=== PATIENT | female | born 1995 | race Hispanic/Latino ===

== ENCOUNTER 2016-02-21 03:15 | Emergency (ER) | payer OTHER ==
[~2016-02-21] VITALS: Ht 167.6 cm; Wt 117.9 kg
--- NOTE | 2016-02-21 03:50 | ED GI/GU/ABDOMINAL COMPLAINT ---
History of Present Illness General Chief Complaint: Nausea, Vomiting, Diarrhea Stated Complaint: NAUSEA,VOMITNING,DIARRHEA Source: patient, family Exam Limitations: no limitations Vital Signs & Intake/Output Vital Signs & Intake/Output Vital Signs Date Time Temp Pulse Resp B/P Pulse O2 O2 Flow FiO2 Ox Delivery Rate 02/20 334 98 Room Air 02/20 333 96.6 101 18 108/74 98 Room Air Allergies Coded Allergies: No Known Drug Allergies (02/21/16) Reconcile Medications Diphenoxylate HCl/Atropine (Lomotil 2.5-0.025 MG Tablet) 2.5 MG-0.025 MG TABLET 1 TAB PO 4 TIMES/DAY PRN DIARRHEA TWENTY....[id number] Ondansetron (Zofran Odt) 4 MG TAB.RAPDIS 1 TAB SL TID PRN NAUSEA Triage Note: PT FROM HOME C/O N/V/D. " I THINK I HAVE THE FLU OR STOMACH BUG". PT STATES THAT SYMPTOMS N/V/D STARTED ON SATURDAY. PT ABLE TO TO DRINK SOUP AND KEEP THE SOUP DOWN, BUT STILL NAUSEA. PT STATES CARO AND DIZZINESS PRESENT. Triage Nurses Notes Reviewed? yes ? n Is pt currently ? No Onset: Gradual Duration: day(s): Timing: recent history Quality/Severity: cramping Location: epigastric Radiation: no radiation Activities at Onset: "My two sisters have the same thing." Prior Abdominal Problems: none Modifying Factors: Worsens With: defecating, vomiting. Associated Symptoms: abdominal pain, diarrhea, nausea/vomiting HPI: 20 yo woman here with her two sisters with nausea, vomiting, diarrhea that began on Saturday night. No fever, chills, focal abdominal pain. She notes that "I just kept vomiting tonight." Past History Travel History Traveled to [place] past 21 day No Medical History Any Pertinent Medical History? see below for history Respiratory: asthma Surgical History Surgical History: none Psychosocial History What is your primary language Lithuanian Tobacco Use: Never used ETOH Use: denies use Illicit Drug Use: denies illicit drug use Family History Hx Contributory? No Review of Systems Review of Systems Constitutional: Reports: no symptoms. EENTM: Reports: no symptoms. Respiratory: Reports: no symptoms. Cardiovascular: Reports: no symptoms. GI: Reports: no symptoms. Genitourinary: Reports: no symptoms. Musculoskeletal: Reports: no symptoms. Skin: Reports: no symptoms. Neurological/Psychological: Reports: no symptoms. Hematologic/Endocrine: Reports: no symptoms. Immunologic/Allergic: Reports: no symptoms. All Other Systems: Reviewed and Negative Physical Exam Physical Exam General Appearance: well developed/nourished, no apparent distress Head: atraumatic Eyes: Bilateral: normal appearance. Ears, Nose, Throat, Mouth: hearing grossly normal Neck: normal inspection, supple, full range of motion Respiratory: normal breath sounds, chest non-tender, no respiratory distress, quiet respiration, lungs clear Cardiovascular: regular rate/rhythm Gastrointestinal: normal bowel sounds, soft, no organomegaly, mild mid epigastric tenderness. no rebound. no guarding. Back: normal inspection Extremities: normal range of motion Neurologic/Psych: no motor/sensory deficits, awake, alert, oriented x 3 Skin: intact, normal color, warm/dry Core Measures ACS in differential dx? No Severe Sepsis Present: No Septic Shock Present: No Progress Differential Diagnosis: gastroenteritis vs other. Plan of Care: well appearing in ED, along with her sisters. Benign exam... supportive medicines given. Encouraged close follow up. Initial ED EKG: none Departure Departure Disposition: HOME OR SELF CARE Condition: Stable Clinical Impression Primary Impression: Gastroenteritis Secondary Impressions: Nausea and vomiting Referrals: [facility],NICOLÁS Palencia (PCP/Family) Referred to [facility] as new patient No Departure Forms: Customer Survey General Discharge Information Prescriptions: Current Visit Scripts Ondansetron (Zofran Odt) 1 TAB SL TID PRN NAUSEA #10 TAB Diphenoxylate HCl/Atropine (Lomotil 2.5-0.025 MG Tablet) 1 TAB PO 4 TIMES/DAY PRN DIARRHEA #20 TAB TWENTY....[id number]
[2016-02-21] MEDS ORDERED: LOMOTIL 2.5-0.1 EACH PO (04:15)
[2016-02-21] MEDS ORDERED: ZOFRAN ODT4 M1 SL (04:15)
[2016-02-21 05:45] VITALS: BP 126/57
== END 2016-02-21 05:50 ==
LOC: ERH 03:15
DX: K52.9 Noninfective gastroenteritis and colitis, unspecified (principal)
CPT/HCPCS: J3101

== ENCOUNTER 2016-08-02 21:59 | Emergency (ER) | payer OTHER ==
[~2016-08-02] VITALS: Ht 167.6 cm; Wt 113.4 kg
[~2016-08-02 21:59] MED LIST: LOMOTIL 2.5-0.1 EACH PO; ZOFRAN ODT4 M1 SL
[2016-08-02 22:05] VITALS: BP 115/75
[2016-08-02] MEDS ORDERED: AMOXICILLIN875 M1 PO (23:07)
[2016-08-02] MEDS ORDERED: ULTRAM50 M1 PO (23:07)
--- NOTE | 2016-08-02 23:08 | ED SKIN/ALLERGY COMPLAINT ---
History of Present Illness General Chief Complaint: Skin Rash/ Abcess Stated Complaint: "BUMP ON L SIDE OF FACE" PER PT Source: patient, old records, Epic Exam Limitations: no limitations Vital Signs & Intake/Output Vital Signs & Intake/Output Vital Signs Date Time Temp Pulse Resp B/P B/P Pulse O2 O2 Flow FiO2 Mean Ox Delivery Rate 08/02 2205 96.6 98 16 115/75 98 Room Air ED Intake and Output 08/03 0000 08/02 1200 Intake Total Output Total Balance Patient 250 lb Weight Weight Estimated Measurement Method Allergies Coded Allergies: No Known Drug Allergies (02/21/16) Reconcile Medications Amoxicillin 875 MG TABLET 1 TAB PO BID adenopathy Diphenoxylate HCl/Atropine (Lomotil 2.5-0.025 MG Tablet) 2.5 MG-0.025 MG TABLET 1 TAB PO 4 TIMES/DAY PRN DIARRHEA TWENTY....[id number] Ondansetron (Zofran Odt) 4 MG TAB.RAPDIS 1 TAB SL TID PRN NAUSEA Tramadol HCl (Ultram) 50 MG TABLET 1-2 TAB PO Q6PRN PRN severe pain Triage Note: RECEIVED 20 YO FEMALE C/O WORSENING LUMP TO LEFT NECK AREA. PT HAS HAD IT SINCE 2012 AND NOW IT IS GETTING WORSE. PT SEEN BY PMD AND DENTIST Triage Nurses Notes Reviewed? yes Onset: several weeks Duration: week(s):, constant, continues in ED, getting worse Timing: recent history Severity: mild Location: left neck Possible Factors: no cause identified No Modifying Factors: none LMP (ages 10-50): unknown : No Patient currently breastfeeds: No HPI: Several weeks prior to admission patient complains of recurrent left neck lesion /lump that is growing in size. She also reports needing a root canal on the left side. There has previously been surgical dissection below this lump does found to be inflammatory fibrous tissue. She follows with ENT and plastic surgery at [place]. She denies fever chills nausea vomiting diarrhea abdominal pain chest pain shortness breath headache dysuria bleeding. Past History Travel History Traveled to [place] past 21 day No Medical History Any Pertinent Medical History? see below for history Neurological: NONE EENT: NONE Cardiovascular: NONE Respiratory: asthma Gastrointestinal: NONE Hepatic: NONE Renal: NONE Musculoskeletal: NONE Psychiatric: NONE Endocrine: NONE Blood Disorders: NONE Cancer(s): NONE Surgical History Surgical History: none Psychosocial History What is your primary language Turkish Tobacco Use: Never used Family History Hx Contributory? No Review of Systems Review of Systems Constitutional: Reports: no symptoms. EENTM: Reports: no symptoms. Respiratory: Reports: no symptoms. Cardiovascular: Reports: no symptoms. GI: Reports: no symptoms. Genitourinary: Reports: no symptoms. Musculoskeletal: Reports: no symptoms. Skin: Reports: see HPI. Neurological/Psychological: Reports: no symptoms. Hematologic/Endocrine: Reports: no symptoms. Immunologic/Allergic: Reports: no symptoms. All Other Systems: Reviewed and Negative Physical Exam Physical Exam General Appearance: well developed/nourished, mild distress Head: atraumatic Eyes: Bilateral: PERRL, EOMI. Ears, Nose, Throat: normal pharynx, normal ENT inspection, hearing grossly normal Neck: normal inspection, supple Respiratory: normal breath sounds Cardiovascular: regular rate/rhythm Peripheral Pulses: 4+ carotid (R), 4+ carotid (L) Gastrointestinal: soft, non-tender Back: normal inspection Extremities: normal inspection, normal range of motion, no edema Neurologic/Psych: awake, alert, oriented x 3, normal mood/affect Reflexes: 2+: bicep (R), bicep (L). Skin: intact, rash, no change in scarring or keloid compared in Epic picture from [id number] Skin Problem Location: left ant neck Skin Problem Character: nodular and mobile Lymphatic: no anterior cervical geoffrey Progress Differential Diagnosis: abscess/cellulitis, allergic reaction Plan of Care: Current Medications Sig/Corwin Start time Last Medication Dose Stop Time Status Admin Amoxicillin 750 MG ONCE ONE 08/02 2299 UNVr (Amoxil) 08/02 2300 Tramadol HCl 50 MG ONCE ONE 08/02 2299 UNVr (Ultram) 08/02 2300 Departure Departure Time of Disposition: 2302 Disposition: HOME OR SELF CARE Condition: Stable Clinical Impression Primary Impression: Fibrous nodule Secondary Impressions: Lymphadenopathy, anterior cervical Referrals: [facility],NIKKO Abdi Call for ENT follow up EDSON DALTON MD Call for plastic surgery follow up UNKNOWN (PCP/Family) Additional Instructions: Have your root canal and follow up with your specialists for further evaluation of your neck lesion. Departure Forms: Customer Survey General Discharge Information Prescriptions: Current Visit Scripts Amoxicillin 1 TAB PO BID #20 TAB Tramadol HCl (Ultram) 1-2 TAB PO Q6PRN PRN severe pain #30 TAB
== END 2016-08-02 23:20 ==
LOC: ERH 21:59
DX: R59.1 Generalized enlarged lymph nodes (principal); R22.1 Localized swelling, mass and lump, neck

== ENCOUNTER 2017-09-04 22:57 | Emergency (ER) | payer OTHER ==
[~2017-09-04] VITALS: Ht 167.6 cm; Wt 117.9 kg
[~2017-09-04 22:57] MED LIST changes: +AMOXICILLIN875 M1 PO; +ULTRAM50 M1 PO
[2017-09-04 23:10] VITALS: BP 144/89
--- NOTE | 2017-09-04 23:42 | ED GENERAL ADULT ---
History of Present Illness General Chief Complaint: General Adult Stated Complaint: ?BLOOD IN STOOL Source: patient Exam Limitations: no limitations Vital Signs & Intake/Output Vital Signs & Intake/Output Vital Signs Date Time Temp Pulse Resp B/P B/P Pulse O2 O2 Flow FiO2 Mean Ox Delivery Rate 09/04 2310 98.9 78 18 144/89 99 Room Air ED Intake and Output 09/05 0000 09/04 1200 Intake Total Output Total Balance Patient 260 lb Weight Allergies Coded Allergies: No Known Drug Allergies (02/21/16) Reconcile Medications Amoxicillin 875 MG TABLET 1 TAB PO BID adenopathy Amoxicillin/Potassium Clav (Augmentin 875-125 Tablet) 875 MG-125 MG TABLET 1 TAB PO BID dental infection Diphenoxylate HCl/Atropine (Lomotil 2.5-0.025 MG Tablet) 2.5 MG-0.025 MG TABLET 1 TAB PO 4 TIMES/DAY PRN DIARRHEA TWENTY....[id number] Docusate Sodium (Colace) 100 MG CAPSULE 1 CAP PO BID constipation Ondansetron (Zofran Odt) 4 MG TAB.RAPDIS 1 TAB SL TID PRN NAUSEA Tramadol HCl (Ultram) 50 MG TABLET 1-2 TAB PO Q6PRN PRN severe pain Triage Note: 21F WENT CAMPING THIS WEEKEND AND WASN'T EATING WELL, WAS CONSTIPATED AND UNABLE TO HAVE BM AND ADMITS TO STRAINING ON SATURDAY TO ATTEMPT TO DEFECATE. HAS HAD BRB TO STOOL AND ON TOILET PAPER SINCE. DENIES N/V OR ABDOMINAL PAIN. Triage Nurses Notes Reviewed? yes Onset: Abrupt Duration: day(s): Timing: intermittent : No Patient currently breastfeeds: No HPI: 21-year-old female with a history of asthma and constipation presenting with bloody stools over the past few days. States that she has intermittently suffered with constipation. Is not currently on a bowel regimen. Went camping this weekend and ate a lot of junk food, did not stay hydrated. Was unable to move her bowels for several days. When she finally did required a significant amount of straining. Once she finally passed the bowel movement she noticed bright red blood in the toilet and on the toilet paper. Denies rectal pain with passing a bowel movement. Denies fevers, abdominal pain, nausea, vomiting. Pt also c/o of dental pain to her right lower teeth. States that she has had 2 broken teeth for a prolonged period of time that she has not had repaired. States that she is currently awaiting a crown on both teeth. Is currently followed by a dentist, but has not made a follow-up appointment. Denies fevers. Past History Travel History Traveled to [place] past 21 day No Medical History Any Pertinent Medical History? see below for history Neurological: NONE EENT: NONE Cardiovascular: NONE Respiratory: asthma Gastrointestinal: NONE Hepatic: NONE Renal: NONE Musculoskeletal: NONE Psychiatric: NONE Endocrine: NONE Blood Disorders: NONE Cancer(s): NONE Surgical History Surgical History: none Psychosocial History What is your primary language Greenlandic Tobacco Use: Never used Family History Hx Contributory? No Review of Systems Review of Systems Constitutional: Reports: no symptoms. EENTM: Reports: no symptoms. Respiratory: Reports: no symptoms. Cardiovascular: Reports: no symptoms. GI: Reports: see HPI. Genitourinary: Reports: no symptoms. Musculoskeletal: Reports: no symptoms. Skin: Reports: no symptoms. Neurological/Psychological: Reports: no symptoms. Hematologic/Endocrine: Reports: no symptoms. Immunologic/Allergic: Reports: no symptoms. All Other Systems: Reviewed and Negative Physical Exam Physical Exam General Appearance: well developed/nourished, no apparent distress, alert, awake , comfortable Head: atraumatic, normal appearance Eyes: Bilateral: normal appearance. Ears, Nose, Throat: Teeth 17 and 18 both appear broken and are tender with tooth thrust, no gingival abscess or purulent drainage Neck: normal inspection Respiratory: normal breath sounds, lungs clear Cardiovascular: regular rate/rhythm Gastrointestinal: soft, non-tender Rectal: heme negative stool, no anal fissures or external hemorrhoids Back: normal inspection Extremities: normal inspection Neurologic/Psych: awake, alert, oriented x 3, normal gait, normal mood/affect Skin: intact, normal color, warm/dry Core Measures ACS in differential dx? No CVA/TIA Diagnosis: No Sepsis Present: No Sepsis Focused Exam Completed? No Progress Differential Diagnoses I considered the following diagnoses in my evaluation of the patient: [Anal fissure versus external hemorrhoid versus internal hemorrhoids versus polyp versus malignancy versus diverticulosis. Apical abscess versus gingival abscess versus dental caries versus dental fracture.] Plan of Care: Patient has no signs of anal fissure or external hemorrhoids on exam. On rectal exam she has brown guaiac negative stool. It is possible that the patient had bleeding internal hemorrhoids that have resolved. Will start on Colace to prevent future constipation and give GI follow-up. Given Rx Augmentin for suspected apical abscess. Instructed to make an appointment with her dentist for reevaluation. Counseled on supportive care and given strict return precautions. Initial ED EKG: none Departure Departure Disposition: HOME OR SELF CARE Condition: Stable Clinical Impression Primary Impression: Bloody stools Secondary Impressions: Pain, dental Referrals: [facility],Brooklynn Alcantara (PCP/Family) Additional Instructions: Take Colace and Augmentin as prescribed. Follow-up with gastroenterology and your dentist for reevaluation. Return to the emergency department for any new or worsening symptoms. Departure Forms: Customer Survey General Discharge Information Prescriptions: Current Visit Scripts Docusate Sodium (Colace) 1 CAP PO BID #60 CAP Amoxicillin/Potassium Clav (Augmentin 875-125 Tablet) 1 TAB PO BID #20 TAB Critical Care Note Critical Care Note Critical Care Time: non-applicable
[2017-09-04] MEDS ORDERED: COLACE100 M1 PO (23:52)
[2017-09-04] MEDS ORDERED: AUGMENTIN 875-1 EACH PO (23:52)
== END 2017-09-04 23:57 ==
LOC: ERH 22:57
DX: K92.1 Melena (principal); K08.89 Other specified disorders of teeth and supporting structures

== ENCOUNTER 2017-11-15 10:18 | Emergency (ER) | payer OTHER ==
[~2017-11-15] VITALS: Ht 167.6 cm; Wt 122.5 kg
[~2017-11-15 10:18] MED LIST changes: +AUGMENTIN 875-1 EACH PO; +COLACE100 M1 PO
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
[2017-11-15] MEDS ORDERED: CYCLOBENZAPRINE5 M2 PO (12:55)
[2017-11-15] MEDS ORDERED: IBUPROFEN800 M1 PO (12:55)
[2017-11-15 13:16] VITALS: BP 102/75
== END 2017-11-15 13:19 ==
LOC: ERH 10:18
DX: M54.2 Cervicalgia (principal); M54.9 Dorsalgia, unspecified; R51 Headache; V89.2XXA Person injured in unspecified motor-vehicle accident, traffic, initial encounter; Y93.89 Activity, other specified; Y92.410 Unspecified street and highway as the place of occurrence of the external cause
CPT/HCPCS: 72050; 72110; 81025